=== PATIENT | male | born 1965 | race Caucasian/White ===

== ENCOUNTER 2021-11-06 08:21 | Day surgery (SDC) | payer OTHER, SELFPAY ==
[2021-11-06] VITALS (33 sets, daily range): BP systolic 135–158; BP diastolic 48–102; PULSE 62–78; RESP 14–16; TEMP 36.2–36.7; O2SAT 92–99
[2021-11-06] MEDS: SODIUM CHLORIDE 0.9 % (FLUSH) 10 ML SYRINGE IVF (09:30)
[2021-11-06] MEDS: ETHYL CHLORIDE 1 APPLICATION 1 APPLIC TOPICAL (09:30)
[2021-11-06] MEDS: LACTATED RINGERS 1000 ML 1,000 ML 100 ML IV (09:30)
--- NOTE | 2021-11-06 09:30 | SUR.PREOP ---
Unsuccessful attempt at IV x2 in left hand by Padmini Cohen
[2021-11-06] MEDS: LACTATED RINGERS 1000 ML 1,000 ML 75 ML IV (11:30)
[2021-11-06] MEDS: BUPIVACAINE 0.25% 30 ML INJECTION (12:02)
--- NOTE | 2021-11-06 12:20 | PM.GSPRC ---
Operative Note Date of procedure: 11/06/21 Type of Procedure: Laparoscopic right inguinal hernia repair with mesh Procedure Description: After discussing the risks and benefits of the procedure, the patient signed informed consent.? The operative site was marked and the patient was brought to the operating room and placed on the operating table in supine position.? Care was taken to pad the patient's pressure points.?? The patient was then intubated by anesthesia.?? The operative site was then prepped and draped in the usual sterile fashion.? A time-out was then performed. A curvilinear incision was made below the umbilicus. Dissection was carried down to subcutaneous tissue until the anterior rectus fascia was encountered. This was incised off the midline to the right. The rectus muscle fibers were then retracted exposing the posterior fascia. A port with a dissecting balloon was then introduced into the pre-preperitoneal space. This was inflated under direct vision. The balloon was deflated, removed, and a 10 mm working port was placed. The space was insuflated and a 10 mm 30-degree scope was then advanced into the space. Two 5 mm ports were placed in the midline under direct vision. Dissection began on the right side. Jakub's ligament and the pubic bone was exposed medially. Following this, dissection was carried out laterally. An indirect defect was noted. The sac was dissected free from the cord structures using a combination of sharp and blunt dissection. Once the sac was completely reduced, a piece of Bard 3DMax mesh for the appropriate side was placed into the abdomen. This was positioned with the marker pointed medially. A Tacker was used to attach the mesh medially at Jakub's ligament and 1 tack laterally with care to avoid the epigastric vessels and stay above the inguinal ligament. Once this was completed the sac was placed on top of the mesh and the preperitoneal space desufflated under direct vision. The ports were removed. The fascia from the infraumbilical port was closed with 0 Vicryl. The skin incisions were closed with absorbable subcuticular suture. Sterile dressings were then applied. The scrotum was examined to ensure that both testicles were down. Instrument sponge and needle counts were correct at the end of the case. ?? The patient was then woken and transported to the recovery area in stable condition. ? The patient tolerated the procedure well. Findings: Indirect right inguinal hernia. Surgeon: Samantha Clements MD
--- NOTE | 2021-11-06 12:36 | W.ANESCHARGE ---
Anesthesia Charges Start Date/Time Anesthesia Start Date: 11/06/21 Anesthesia Start Time: 11:02 Stop Date/Time Anesthesia Stop Date: 11/06/21 Anesthesia Stop Time: 12:25 Summary Emergency: Yes
--- NOTE | 2021-11-06 14:48 | W.ANESCHARGE ---
Anesthesia Charges Start Date/Time Anesthesia Start Date: 11/06/21 Anesthesia Start Time: 11:02 Stop Date/Time Anesthesia Stop Date: 11/06/21 Anesthesia Stop Time: 12:25 Summary Emergency: Yes
== END 2021-11-06 13:40 | disposition home or self-care (01) ==
PROVIDERS: Visit Provider Surgery
PROC: (CPT 49650; principal; 2021-11-06 10:15)
DX: K40.90 Unilateral inguinal hernia, without obstruction or gangrene, not specified as recurrent (principal)
CPT/HCPCS: 49650; 00830; 00860; 99140; C1781; J0330; J1100; J1885; J2250; J2405; J2704; J3010; J3490; J7120